=== PATIENT | female | born 1950 | race African-American/Black ===

== ENCOUNTER 2016-10-21 13:10 | Emergency (ER) | payer MEDICARE ==
[~2016-10-21] VITALS: Ht 180.3 cm; Wt 83.0 kg
[~2016-10-21 13:10] MED LIST: ASPIRIN81 MG PO; ATENOLOL25 MG PO; CLOPIDOGREL75 MG PO; PREVACID30 M1 PO; ULTRAM50 M1 PO; ZETIA10 MG PO
[2016-10-21 13:51] LABS: HEMATOCRIT 45.4 % (37.0-47.0); HEMOGLOBIN 14.8 g/dl (12.0-16.0); IMMATURE GRANULOCYTES 0.5 % (0.0-1.0); MEAN CELL VOLUME 92.1 fL CALC (80.0-100.0); MEAN CORPUSCULAR HGB CONC 32.6 g/L CALC (32.0-36.0); NEUT# 2.19 thou/uL (2.00-7.15); RED BLOOD COUNT 4.93 mill/uL (4.20-5.60); RED CELL DISTRI WIDTH 13.7 % (11.5-15.5)
[2016-10-21 13:58] LABS: ALBUMIN 4.6 g/dL (3.2-5.0); ALKALINE PHOSPHATASE 74 u/l (38-126); ANION GAP 17 (6-22 (CALC)); BILIRUBIN, TOTAL 0.6 mg/dL (0.0-1.4); BUN 14 mg/dL (8-23); BUN/CREATININE RATIO 14 (12-20 (CALC)); CALCIUM 9.6 mg/dL (8.4-10.2); CARBON DIOXIDE 28 mmol/l (22-30); CHLORIDE 104 mmol/l (95-108); CREATININE 0.9 mg/dL (0.5-1.0); GFR > 60 ML/MIN (>=60 (CALC)); GFR FOR AFR.AMER. > 60 ML/MIN (>=60 (CALC)); GLUCOSE 114 mg/dL (82-115); POTASSIUM 3.9 mmol/l (3.5-5.1); SGOT/AST 25 u/l (9-36); SGPT/ALT 27 u/l (11-66); SODIUM 145 mmol/l (137-146); TOTAL PROTEIN 8.3 g/dL (6.3-8.2)
[2016-10-21 14:09] LABS: MYOGLOBIN 45 ng/mL (0 - 62)
[2016-10-21 15:04] VITALS: BP 142/94
== END 2016-10-21 15:08 | disposition home or self-care (01) ==
LOC: ED 13:10
PROVIDERS: Emergency Medicine
DX: R00.2 Palpitations (principal); R07.89 Other chest pain; I10 Essential (primary) hypertension

== ENCOUNTER 2016-10-25 12:36 | Observation (INO) | payer MEDICARE ==
[~2016-10-25] VITALS: Ht 182.9 cm; Wt 84.0 kg
--- NOTE | 2016-10-25 12:40 | NUR ---
PT TO ROOM 15 VIA WHEELCHAIR.
[2016-10-25] MEDS ORDERED: PROTONIX40 M2 PO (12:54)
[2016-10-25] MEDS ORDERED: SYMBICORT1 AE1 IN (12:55)
[2016-10-25 13:16] LABS: HEMATOCRIT 42.8 % (37.0-47.0); HEMOGLOBIN 14.4 g/dl (12.0-16.0); IMMATURE GRANULOCYTES 0.4 % (0.0-1.0); MEAN CELL VOLUME 89.5 fL CALC (80.0-100.0); MEAN CORPUSCULAR HGB 30.1 pG CALC (26.0-32.0); MEAN CORPUSCULAR HGB CONC 33.6 g/L CALC (32.0-36.0); NEUT# 2.85 thou/uL (2.00-7.15); RED BLOOD COUNT 4.78 mill/uL (4.20-5.60); RED CELL DISTRI WIDTH 13.2 % (11.5-15.5)
[2016-10-25 13:26] LABS: ALBUMIN 4.6 g/dL (3.2-5.0); ALKALINE PHOSPHATASE 81 u/l (38-126); ANION GAP 16 (6-22 (CALC)); BILIRUBIN, TOTAL 0.8 mg/dL (0.0-1.4); BUN 13 mg/dL (8-23); BUN/CREATININE RATIO 13 (12-20 (CALC)); CALCIUM 9.8 mg/dL (8.4-10.2); CARBON DIOXIDE 26 mmol/l (22-30); CHLORIDE 103 mmol/l (95-108); GFR 56 ML/MIN (>=60 (CALC)); GFR FOR AFR.AMER. > 60 ML/MIN (>=60 (CALC)); GLUCOSE 143 mg/dL (82-115); POTASSIUM 3.8 mmol/l (3.5-5.1); SGOT/AST 23 u/l (9-36); SGPT/ALT 31 u/l (11-66); SODIUM 141 mmol/l (137-146); TOTAL PROTEIN 7.8 g/dL (6.3-8.2)
--- NOTE | 2016-10-25 14:51 | NUR ---
PT WITH IV ESTABLISHED, BLOOD DRAWN, RESTS IN THE STRETCHER IN NO ACUTE DISTRESS.
[2016-10-25 15:33] LABS: URINE BILIRUBIN - DIPSTICK NEGATIVE (NEGATIVE); URINE BLOOD DIPSTICK NEGATIVE (NEGATIVE); URINE CLARITY CLEAR; URINE COLOR YELLOW; URINE GLUCOSE - DIPSTICK NEGATIVE (NEGATIVE); URINE KETONE NEGATIVE (NEGATIVE); URINE LEUK ESTERASE NEGATIVE (Negative); URINE NITRITE - DIPSTICK NEGATIVE (Negative); URINE PROTEIN - DIPSTICK NEGATIVE (NEG-TRACE); URINE UROBILINOGEN - DIPSTICK 0.2 E.U./dL (0.2)
--- NOTE | 2016-10-25 16:20 | NUR ---
SBAR PRINTED TO FLOOR
--- NOTE | 2016-10-25 16:33 | NUR ---
PT GIVEN MAALOX FOR REFLUX SYMPTOMS. PT AWARE OF PENDING ADMISSION.
[2016-10-25 16:52] LABS: TSH, 3RD GENERATION 1.33 uIU/mL (0.47 - 4.68)
--- NOTE | 2016-10-25 17:50 | NUR ---
Admission Note Report Given to: SBAR PRINTED TO FLOOR Transported by: Wheelchair X Stretcher Transported with: X Nurse Transporter X Patent IV [id number] X Salesperson Women'S Dresses
--- NOTE | 2016-10-25 17:54 | NUR ---
PT TAKEN TO 283, REPORT WAS TO LUIS Woods
--- NOTE | 2016-10-25 18:00 | NUR ---
FROM ER VIA STRETCHER ACCOMPANIED BY MICHAEL COX. AMBULATED TO BED WITH STEADY GAIT. RESPS EVEN AND UNLABORED ON ROOM AIR, TELE MONITOR IN PLACE. VOICES NO C/O AT THIS TIME. PO FLUIDS AND FOOD OFFERED. ORIENTED TO ROOM AND CALL SYSTEM. SAFEYTY PRECAUTIONS REINFORCED. BED IN LOWEST POAITION WITH WHEELS LOCKED. CALL LIGHT WITHIN REACH. WILL CONTINUE TO MONITOR.
[2016-10-25 18:08] VITALS: BP 107/70
[2016-10-25 19:19] VITALS: BP 98/57
--- NOTE | 2016-10-25 19:59 | NUR ---
BEDSIDE REPORT RECEIVED FROM BROOKE SMITH. PT RESTING IN SUPINE POSTION IN BED. DENIED PAIN AND NO RESPIRATORY DISTRESS NOTED. APPEARS CALM AND WITHOUT ANXIETY AT THIS TIME. PLAN OF CARE DISCUSSED. ENCOURAGED TO VERBALIZE CONCERNS. PT STATES UNDERSTANDING. SAFETY PRECAUTIONS IN PLACE. CALL LIGHT SYSTEM REVIEWED AND IN REACH.
--- NOTE | 2016-10-26 02:23 | NUR ---
PT RESTING SUPINE IN BED WITH EYES CLOSED. NO SIGNS OF PAIN OR RESPIRATORY DISTRESS. NO NEEDS AT THIS TIME. IV SITE APPEARS HEALTHY AND IS PATENT. SAFETY MEASURES IN PLACE. CALL LIGHT WITHIN REACH.
[2016-10-26 04:00] VITALS: BP 103/52
--- NOTE | 2016-10-26 04:00 | NUR ---
PT RESTING IN BED IN LEFT SIDE LYING POSITION. C/O MILD HEADACHE. NON-PHARMACEUTICAL INTERVENTIONS ATTEMPTED WITH GOOD EFFECT. SAFETY MEASURES IN PLACE. CALL LIGHT WITHIN REACH.
[2016-10-26 06:28] LABS: HEMATOCRIT 41.7 % (37.0-47.0); HEMOGLOBIN 13.6 g/dl (12.0-16.0); IMMATURE GRANULOCYTES 0.5 % (0.0-1.0); MEAN CELL VOLUME 91.9 fL CALC (80.0-100.0); MEAN CORPUSCULAR HGB CONC 32.6 g/L CALC (32.0-36.0); NEUT# 3.06 thou/uL (2.00-7.15); RED BLOOD COUNT 4.54 mill/uL (4.20-5.60); RED CELL DISTRI WIDTH 13.4 % (11.5-15.5)
[2016-10-26 06:53] LABS: ANION GAP 14 (6-22 (CALC)); BUN 13 mg/dL (8-23); BUN/CREATININE RATIO 14 (12-20 (CALC)); CALCIUM 9.4 mg/dL (8.4-10.2); CALCULATED LDLCHOLESTEROL 129 mg/dL (62-129 (CALC)); CARBON DIOXIDE 28 mmol/l (22-30); CHLORIDE 104 mmol/l (95-108); GFR 56 ML/MIN (>=60 (CALC)); GFR FOR AFR.AMER. > 60 ML/MIN (>=60 (CALC)); GLUCOSE 114 mg/dL (82-115); HDL CHOLESTEROL 40 mg/dL (>=40); POTASSIUM 4.4 mmol/l (3.5-5.1); SODIUM 142 mmol/l (137-146); TOTAL CHOLESTEROL 199 mg/dl (0-199); TOTAL TRIGLYCERIDES 153 mg/dl (30-149); VLDL CHOLESTROL 31 mg/dl (1-41 (CALC))
--- NOTE | 2016-10-26 07:55 | NUR ---
PT IS RELAXING AND TALKING ON THE PHONE. CONTINUE TO OBSERVE AND MONITOR.
[2016-10-26 08:17] VITALS: BP 114/71
--- NOTE | 2016-10-26 08:21 | NUR ---
ASSESSMENT IS COMPLETED: PT IS C/O HEADACHE. TOOK NTG PASTE OFF CHEST WALL. IV SITE IS FREE FROM REDNESS OR EDEMA. TELE MONTIOR IN PLACE.
[2016-10-26 10:02] VITALS: BP 114/71
[2016-10-26] MEDS ORDERED: PROTONIX40 M2 PO (10:20)
--- NOTE | 2016-10-26 11:06 | NUR ---
DISCHARGE INSTRUCTIONS AND IV AND TELE MONITOR TAKEN OFF. IV SITE IS FREE FROM REDNESS OR EDEMA. CATHETER INTACT.
--- NOTE | 2016-10-26 11:45 | NUR ---
DISCHARGE INSTRUCTIONS GIVEN AND PT VERBALIZED UNDERSTANDING. Discharge instructions given. Patient verbalizes understanding of same. Discharged in stable condition via Wheelchair to Home with family. All belongings sent with pt.
== END 2016-10-26 11:15 | disposition home or self-care (01) ==
LOC: ENPENDDIS → ED 12:36 → ED-I 16:18 → ED 16:23 → MS2 16:24
PROVIDERS: Emergency Medicine; ADMIT Internal Medicine; ATTEND Internal Medicine
DX: R00.2 Palpitations (principal); I10 Essential (primary) hypertension; I25.10 Atherosclerotic heart disease of native coronary artery without angina pectoris; E78.00 Pure hypercholesterolemia, unspecified; J44.9 Chronic obstructive pulmonary disease, unspecified; K21.9 Gastro-esophageal reflux disease without esophagitis; Z95.5 Presence of coronary angioplasty implant and graft; R94.31 Abnormal electrocardiogram [ECG] [EKG]
CPT/HCPCS: G0378; J2060

== ENCOUNTER 2017-09-02 18:44 | Emergency (ER) | payer MEDICARE ==
[~2017-09-02] VITALS: Ht 182.9 cm; Wt 84.0 kg
[~2017-09-02 18:44] MED LIST changes: +PROTONIX40 M2 PO; +SYMBICORT1 AE1 IN
[2017-09-02 19:41] LABS: HEMATOCRIT 43.4 % (37.0-47.0); HEMOGLOBIN 14.5 g/dl (12.0-16.0); IMMATURE GRANULOCYTES 0.5 % (0.0-1.0); MEAN CELL VOLUME 90.2 fL CALC (80.0-100.0); MEAN CORPUSCULAR HGB 30.1 pG CALC (26.0-32.0); MEAN CORPUSCULAR HGB CONC 33.4 g/L CALC (32.0-36.0); NEUT# 4.05 thou/uL (2.00-7.15); RED BLOOD COUNT 4.81 mill/uL (4.20-5.60); RED CELL DISTRI WIDTH 13.1 % (11.5-15.5)
[2017-09-02 19:42] LABS: URINE BILIRUBIN - DIPSTICK NEGATIVE (NEGATIVE); URINE BLOOD DIPSTICK NEGATIVE (NEGATIVE); URINE COLOR YELLOW; URINE GLUCOSE - DIPSTICK NEGATIVE (NEGATIVE); URINE KETONE NEGATIVE (NEGATIVE); URINE LEUK ESTERASE NEGATIVE (NEGATIVE); URINE NITRITE - DIPSTICK NEGATIVE (Negative); URINE PH 5.5 (4.5-8.0); URINE PROTEIN - DIPSTICK TRACE mg/dL (NEG-TRACE); URINE SPECIFIC GRAVITY >=1.030; URINE UROBILINOGEN - DIPSTICK 0.2 E.U./dL (0.2)
[2017-09-02 19:44] LABS: URINE CLARITY CLEAR
[2017-09-02 19:54] LABS: ALBUMIN 4.7 g/dL (3.2-5.0); ALKALINE PHOSPHATASE 83 u/l (38-126); ANION GAP 17 (6-22 (CALC)); BILIRUBIN, TOTAL 0.7 mg/dL (0.0-1.4); BUN 11 mg/dL (8-23); BUN/CREATININE RATIO 12 (12-20 (CALC)); CALCIUM 10.7 mg/dL (8.4-10.2); CARBON DIOXIDE 26 mmol/l (22-30); CHLORIDE 105 mmol/l (95-108); GFR 55 ML/MIN (>=60 (CALC)); GFR FOR AFR.AMER. > 60 ML/MIN (>=60 (CALC)); GLUCOSE 126 mg/dL (82-115); LIPASE 68 u/l (23-300); SGOT/AST 25 u/l (9-36); SGPT/ALT 22 u/l (11-66); SODIUM 144 mmol/l (137-146); TOTAL PROTEIN 7.6 g/dL (6.3-8.2)
[2017-09-02] MEDS ORDERED: MOTRIN400 MG PO (22:28)
[2017-09-02] MEDS ORDERED: ZOFRAN4 M1 PO (22:28)
[2017-09-02 22:40] VITALS: BP 128/64
[2017-09-03] MEDS ORDERED: ZOFRAN4 M1 PO (05:47)
[2017-09-03] MEDS ORDERED: HYDROCO/APAP1 TA9 PO (05:47)
== END 2017-09-02 23:05 | disposition home or self-care (01) ==
LOC: ED 18:44
PROVIDERS: Family Medicine
DX: M54.5 Low back pain (principal); I10 Essential (primary) hypertension; J44.9 Chronic obstructive pulmonary disease, unspecified; K21.9 Gastro-esophageal reflux disease without esophagitis
CPT/HCPCS: Q9967

== ENCOUNTER 2017-09-03 05:23 | Emergency (ER) | payer MEDICARE ==
[~2017-09-03] VITALS: Ht 182.9 cm; Wt 84.0 kg
[~2017-09-03 05:23] MED LIST changes: +MOTRIN400 MG PO; +ZOFRAN4 M1 PO
[2017-09-03] MEDS ORDERED: HYDROCO/APAP1 TA9 PO (05:47)
[2017-09-03] MEDS ORDERED: ZOFRAN4 M1 PO (05:47)
[2017-09-03 06:30] VITALS: BP 116/52
== END 2017-09-03 06:30 | disposition home or self-care (01) ==
LOC: ED 05:23
DX: R10.2 Pelvic and perineal pain (principal); R10.31 Right lower quadrant pain

== ENCOUNTER 2018-03-04 16:40 | Emergency (ER) | payer MEDICARE, MEDICAID ==
[~2018-03-04] VITALS: Ht 182.9 cm; Wt 85.0 kg
[~2018-03-04 16:40] MED LIST changes: +HYDROCO/APAP1 TA9 PO
[2018-03-04 17:18] LABS: URINE BILIRUBIN - DIPSTICK NEGATIVE (NEGATIVE); URINE BLOOD DIPSTICK NEGATIVE (NEGATIVE); URINE COLOR YELLOW; URINE GLUCOSE - DIPSTICK NEGATIVE (NEGATIVE); URINE KETONE NEGATIVE (NEGATIVE); URINE LEUK ESTERASE NEGATIVE (NEGATIVE); URINE NITRITE - DIPSTICK NEGATIVE (Negative); URINE PROTEIN - DIPSTICK NEGATIVE (NEG-TRACE)
[2018-03-04 17:19] LABS: URINE CLARITY CLEAR
[2018-03-04] MEDS ORDERED: BENADRYL 50MG C50 MG PO (17:34)
[2018-03-04] MEDS ORDERED: MEDDOSEPAK PO (17:34)
[2018-03-04 17:35] VITALS: BP 125/88
== END 2018-03-04 17:35 | disposition home or self-care (01) ==
LOC: ED 16:40
DX: L29.9 Pruritus, unspecified (principal); T36.0X5A Adverse effect of penicillins, initial encounter; I10 Essential (primary) hypertension; K21.9 Gastro-esophageal reflux disease without esophagitis; J44.9 Chronic obstructive pulmonary disease, unspecified

== ENCOUNTER 2018-11-02 10:46 | Emergency (ER) | payer MEDICARE ==
[~2018-11-02] VITALS: Ht 182.9 cm; Wt 83.0 kg
[~2018-11-02 10:46] MED LIST changes: +BENADRYL 50MG C50 MG PO; +MEDDOSEPAK PO
[2018-11-02 11:15] LABS: HEMATOCRIT 46.2 % (37.0-47.0); HEMOGLOBIN 15.1 g/dl (12.0-16.0); IMMATURE GRANULOCYTES 0.5 % (0.0-5.0); MEAN CELL VOLUME 89.9 fL CALC (80.0-100.0); MEAN CORPUSCULAR HGB 29.4 pG CALC (26.0-32.0); MEAN CORPUSCULAR HGB CONC 32.7 g/L CALC (32.0-36.0); NEUT# 2.36 thou/uL (2.00-7.15); RED BLOOD COUNT 5.14 mill/uL (4.20-5.60); RED CELL DISTRI WIDTH 13.7 % (11.5-15.5)
[2018-11-02 11:42] LABS: ALBUMIN 4.8 g/dL (3.2-5.0); ALKALINE PHOSPHATASE 71 u/l (38-126); ANION GAP 15 (6-22 (CALC)); BUN 15 mg/dL (8-23); BUN/CREATININE RATIO 14 (12-20 (CALC)); CARBON DIOXIDE 27 mmol/l (22-30); CHLORIDE 103 mmol/l (95-108); CREATININE 1.1 mg/dL (0.5-1.0); GFR 50 ML/MIN (>=60 (CALC)); GFR FOR AFR.AMER. 60 ML/MIN (>=60 (CALC)); POTASSIUM 3.7 mmol/l (3.5-5.1); SGOT/AST 21 u/l (9-36); SODIUM 141 mmol/l (137-146); TOTAL PROTEIN 7.9 g/dL (6.3-8.2)
[2018-11-02 11:53] LABS: MYOGLOBIN 39 ng/mL (0 - 62)
[2018-11-02 12:24] LABS: BARBITURATES NEGATIVE (NEGATIVE); COCAINE NEGATIVE (NEGATIVE); METHADONE NEGATIVE (NEGATIVE); OXCYCODONE NEGATIVE (NEGATIVE); TETRAHYDROCANNABIONOL POSITIVE (NEGATIVE); TRICYLIC ANTIDEPRESSANTS NEGATIVE (NEGATIVE); URINE BILIRUBIN - DIPSTICK NEGATIVE (NEGATIVE); URINE BLOOD DIPSTICK NEGATIVE (NEGATIVE); URINE COLOR YELLOW; URINE GLUCOSE - DIPSTICK NEGATIVE (NEGATIVE); URINE KETONE TRACE mg/dL (NEGATIVE); URINE LEUK ESTERASE NEGATIVE (NEGATIVE); URINE NITRITE - DIPSTICK NEGATIVE (Negative); URINE PH 5.5 (4.5-8.0); URINE PROTEIN - DIPSTICK TRACE mg/dL (NEG-TRACE); URINE SPECIFIC GRAVITY 1.025
[2018-11-02] MEDS ORDERED: ATIVAN0.5 MG PO (12:32)
[2018-11-02 14:03] VITALS: BP 148/79
== END 2018-11-02 14:11 | disposition home or self-care (01) ==
LOC: ED 10:46
PROVIDERS: Emergency Medicine
DX: I49.3 Ventricular premature depolarization (principal); R91.8 Other nonspecific abnormal finding of lung field; I10 Essential (primary) hypertension; J44.9 Chronic obstructive pulmonary disease, unspecified; K21.9 Gastro-esophageal reflux disease without esophagitis
CPT/HCPCS: Q9967